=== PATIENT | male | born 1960 | race Caucasian/White ===

== ENCOUNTER 2017-02-16 19:55 | Emergency (ER) | payer OTHER ==
[~2017-02-16] VITALS: Ht 190.5 cm; Wt 93.2 kg
[2017-02-16 19:55] VITALS: BP 140/72
[2017-02-16] MEDS ORDERED: FLOM5CAP PO (20:25)
[2017-02-16] MEDS ORDERED: IBUP-1022 PO (21:15)
--- NOTE | 2017-02-17 01:24 | REP ---
Clinical: Trauma. Technique: AP, lateral, bilateral oblique views of the left hand. Comparison: 2008. Findings: No acute fracture or dislocation appreciated. 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 No subcutaneous emphysema or radiodense foreign body. Impression: No acute fracture dislocation. Moderate arthritic changes. 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 Signed by Hebert Diaz MD 02/17/2017 01:16 A
== END 2017-02-16 21:25 | disposition home or self-care (01) ==
LOC: M ED 19:55
DX: S60.222A Contusion of left hand, initial encounter (principal); W23.1XXA Caught, crushed, jammed, or pinched between stationary objects, initial encounter; Y92.89 Other specified places as the place of occurrence of the external cause; Y93.89 Activity, other specified; Y99.0 Civilian activity done for income or pay

== ENCOUNTER 2017-02-20 14:52 | Emergency (ER) | payer OTHER, SELFPAY ==
[~2017-02-20] VITALS: Ht 190.5 cm; Wt 90.9 kg
[2017-02-20 14:52] VITALS: BP 128/78
[~2017-02-20 14:52] MED LIST: FLOM5CAP PO; IBUP-1022 PO
[2017-02-20] MEDS ORDERED: AMOX500C PO (15:09)
[2017-02-20] MEDS ORDERED: ACET30TAB PO (15:09)
== END 2017-02-20 15:21 | disposition home or self-care (01) ==
LOC: M ED 14:52
DX: R22.0 Localized swelling, mass and lump, head (principal)

== ENCOUNTER 2018-02-21 17:19 | Emergency (ER) | payer OTHER, SELFPAY | END 2018-02-21 18:42 | disposition home or self-care (01) | LOC: M ED 17:19 | DX: Z48.02 Encounter for removal of sutures (principal) | CPT/HCPCS: 99282 ==

== ENCOUNTER → 2020-06-30 | Outpatient (CLI) | payer SELFPAY ==
[~2020-06-30] MED LIST changes: +ACET-716 PO; +AMOX500C PO; +FLOM0.4C39 PO; -FLOM5CAP PO
== END ==
LOC: M LABSMTC 18:21
PROVIDERS: ATTEND Pediatrics
DX: Z11.59 Encounter for screening for other viral diseases (principal)

== ENCOUNTER → 2020-11-05 | Outpatient (CLI) | payer SELFPAY | LOC: M LABSMTC 13:58 | PROVIDERS: ATTEND Family Medicine | DX: Z20.822 Contact with and (suspected) exposure to COVID-19 (principal) | CPT/HCPCS: C9803; U0003 ==

== ENCOUNTER → 2022-05-26 | Outpatient (CLI) | payer OTHER ==
[2022-05-26 20:14] LABS: ALBUMIN 3.6 GM/DL (3.2-5.2); ALT/SGPT 54 U/L (12-78); BILIRUBIN,TOTAL 0.4 MG/DL (0.2-1.0); BLOOD UREA NITROGEN 27 MG/DL (7-18); CALCIUM LEVEL 8.6 MG/DL (8.8-10.2); CARBON DIOXIDE LEVEL 24 MEQ/L (21-32); CHLORIDE LEVEL 107 MEQ/L (98-107); CHOLESTEROL LEVEL 195 MG/DL (<200); CHOLESTEROL RISK RATIO 4.756 (<5); GLOMERULAR FILTRATION RATE > 60.0 (>49); GLUCOSE, FASTING 82 MG/DL (70-100); HDL CHOLESTEROL 41 MG/DL (>40); LDL CHOLESTEROL 140 MG/DL (<100); NON-HDL-C 154 MG/DL; POTASSIUM SERUM 4.6 MEQ/L (3.5-5.1); SODIUM LEVEL 138 MEQ/L (136-145); TOTAL PROTEIN 6.9 GM/DL (6.4-8.2); TRIGLYCERIDES LEVEL 72 MG/DL (<150)
[2022-05-26 20:38] LABS: HEMOGLOBIN A1c 5.8 %
[2022-05-26 21:58] LABS: HEPATITIS C VIRUS ABY INDEX 0.1 INDEX (<0.8)
== END ==
LOC: M PLALAB 15:42
PROVIDERS: ATTEND Family Medicine
DX: Z13.6 Encounter for screening for cardiovascular disorders (principal); Z11.9 Encounter for screening for infectious and parasitic diseases, unspecified

== ENCOUNTER → 2022-07-26 | Outpatient (CLI) | payer OTHER | LOC: M SLEEP HO 13:12 | PROVIDERS: ATTEND Family Medicine | DX: Z86.69 Personal history of other diseases of the nervous system and sense organs (principal) ==

== ENCOUNTER → 2023-10-14 | Outpatient (CLI) | payer MEDICARE ==
[2023-10-14 15:43] LABS: APPEARANCE, URINE HAZY (CLEAR); BACTERIA, URINE AUTO NEGATIVE (NEGATIVE); BILIRUBIN, URINE AUTO NEGATIVE (NEGATIVE); BLOOD, URINE BLOOD NEGATIVE (NEGATIVE); COLOR, URINE YELLOW (YELLOW); GLUCOSE, URINE (UA) AUTO NEGATIVE (NEGATIVE); KETONE, URINE AUTO NEGATIVE (NEGATIVE); LEUKOCYTE ESTERASE, URINE AUTO NEGATIVE (NEGATIVE); MUCUS, URINE SMALL (NEGATIVE); NITRITE, URINE AUTO NEGATIVE (NEGATIVE); PROTEIN, URINE AUTO NEGATIVE (NEGATIVE); RBC, URINE AUTO 0 /HPF (0-3); SQUAMOUS EPITHELIAL CELL UR AU 0 /HPF (0-6); UROBILINOGEN, URINE AUTO 0.2 mg/dL (0.0-2.0); WBC, URINE AUTO 1 /HPF (0-3)
[2023-10-14 19:22] LABS: BASO % 0.3 % (0.0-1.0); EOS # 0.1 10^3/uL (0.0-0.5); EOS % 1.7 % (0.0-3.0); HEMATOCRIT 46.2 % (42.0-52.0); HEMOGLOBIN 15.9 g/dl (13.5-17.5); LYMPH # 2.1 10^3/uL (1.5-5.0); LYMPH % 33.3 % (24.0-44.0); MEAN CORPUSCULAR HEMOGLOBIN 31.5 pg (27.0-33.0); MEAN CORPUSCULAR HGB CONC 34.4 g/dl (32.0-36.5); MEAN CORPUSCULAR VOLUME 91.7 fl (80.0-96.0); MONO # 0.5 10^3/uL (0.0-0.8); MONO % 8.2 % (2.0-8.0); NEUTROPHILS # 3.6 10^3/uL (1.5-8.5); NEUTROPHILS % 56.3 % (36.0-66.0); PLATELET COUNT, AUTOMATED 269 10^3/uL (150-450); RED BLOOD COUNT 5.04 10^6/uL (4.30-6.10); WHITE BLOOD COUNT 6.4 10^3/uL (4.0-10.0)
[2023-10-14 19:36] LABS: C REACTIVE PROTEIN QUANTITATIV < 0.40 MG/DL (<1.0); LIPASE 30 U/L (12-53)
[2023-10-14 19:38] LABS: ALBUMIN 3.9 G/DL (3.2-5.2); ALKALINE PHOSPHATASE 91 U/L (46-116); ALT/SGPT 34 U/L (7.0-40); AST/SGOT 26 U/L (<34); BILIRUBIN,TOTAL 0.7 MG/DL (0.3-1.2); BLOOD UREA NITROGEN 19 MG/DL (9-23); CALCIUM LEVEL 8.5 MG/DL (8.3-10.6); CARBON DIOXIDE LEVEL 24 MMOL/L (20-31); CHLORIDE LEVEL 110 MMOL/L (98-107); CREATININE FOR GFR 0.88 MG/DL (0.70-1.30); GLOMERULAR FILTRATION RATE > 60.0 (>49); GLUCOSE, FASTING 86 MG/DL (74-106); POTASSIUM SERUM 4.3 MMOL/L (3.5-5.1); SODIUM LEVEL 139 MMOL/L (136-145); TOTAL PROTEIN 7.1 G/DL (5.7-8.2)
[2023-10-17 23:08] LABS: PSA TOTAL 0.5 ng/mL (0.0-4.0)
== END ==
LOC: M PLALAB 14:40
PROVIDERS: ATTEND Nurse Practitioner Family
DX: N40.0 Benign prostatic hyperplasia without lower urinary tract symptoms (principal); R10.84 Generalized abdominal pain

== ENCOUNTER → 2023-11-04 | Outpatient (CLI) | payer MEDICARE ==
[2023-11-04 16:10] LABS: CHOLESTEROL RISK RATIO 4.4 (<5); HDL CHOLESTEROL 37.2 MG/DL (>40); NON-HDL-C 126.8 MG/DL
[2023-11-04 16:18] LABS: HEMOGLOBIN A1c 5.6 % (4.0-6.0)
== END ==
LOC: M PLALAB 14:31
PROVIDERS: ATTEND Family Medicine
DX: E78.00 Pure hypercholesterolemia, unspecified (principal); R73.03 Prediabetes

== ENCOUNTER → 2023-12-29 | Outpatient (REF) | payer MEDICARE ==
[2024-01-09 11:08] LABS: CALPROTECTIN STOOL 64 mcg/g (<50); PANCREATIC ELASTASE STOOL > 500 mcg/g (>200)
== END ==
LOC: M LAB REF 13:17
PROVIDERS: ATTEND Nurse Practitioner Family
DX: R19.7 Diarrhea, unspecified (principal); R14.0 Abdominal distension (gaseous)

== ENCOUNTER → 2023-12-29 | Outpatient (CLI) | payer MEDICARE | LOC: M LAB 17:03 | PROVIDERS: ATTEND Nurse Practitioner Family | DX: R19.7 Diarrhea, unspecified (principal) ==

== ENCOUNTER 2024-04-04 06:21 | Emergency (ER) | payer MEDICARE ==
[~2024-04-04] VITALS: Ht 193 cm; Wt 98.0 kg
[2024-04-04 07:06] LABS: BASO % 0.4 % (0.0-1.0); EOS # 0.1 10^3/uL (0.0-0.5); EOS % 1.7 % (0.0-3.0); HEMATOCRIT 41.9 % (42.0-52.0); HEMOGLOBIN 14.3 g/dl (13.5-17.5); LYMPH # 1.8 10^3/uL (1.5-5.0); LYMPH % 24.1 % (24.0-44.0); MEAN CORPUSCULAR HEMOGLOBIN 31.6 pg (27.0-33.0); MEAN CORPUSCULAR HGB CONC 34.1 g/dl (32.0-36.5); MEAN CORPUSCULAR VOLUME 92.5 fl (80.0-96.0); MONO # 0.7 10^3/uL (0.0-0.8); MONO % 9.4 % (2.0-8.0); NEUTROPHILS # 4.7 10^3/uL (1.5-8.5); NEUTROPHILS % 64.1 % (36.0-66.0); PLATELET COUNT, AUTOMATED 234 10^3/uL (150-450); RED BLOOD COUNT 4.53 10^6/uL (4.30-6.10); WHITE BLOOD COUNT 7.3 10^3/uL (4.0-10.0)
[2024-04-04 07:32] LABS: BLOOD UREA NITROGEN 20 MG/DL (9-23); CARBON DIOXIDE LEVEL 25 MMOL/L (20-31); CHLORIDE LEVEL 111 MMOL/L (98-107); CREATININE FOR GFR 0.83 MG/DL (0.70-1.30); GLOMERULAR FILTRATION RATE > 60.0 (>49); GLUCOSE, FASTING 110 MG/DL (74-106); POTASSIUM SERUM 4.3 MMOL/L (3.5-5.1); SODIUM LEVEL 139 MMOL/L (136-145)
[2024-04-04 07:42] LABS: CPK CREATINE PHOSPHOKINASE 302 U/L (46-171); MB/CK RELATIVE INDEX 2.31 (< OR =4)
[2024-04-04 08:33] LABS: MB/CK RELATIVE INDEX 2.45 (< OR =4)
[2024-04-04] MEDS ORDERED: ISOVUE-370 76% 100ML VIAL As Ordered ONE (09:27)
[2024-04-04 10:30] VITALS: BP 109/73; TEMP 98.5; O2SAT 98
== END 2024-04-04 10:49 | disposition home or self-care (01) ==
LOC: M ED 06:21
DX: M94.0 Chondrocostal junction syndrome [Tietze] (principal); R91.1 Solitary pulmonary nodule; R00.1 Bradycardia, unspecified
CPT/HCPCS: 36415; 71046; 71275; 80048; 82550; 82553; 84484; 85025; 93005; 93041; 94760; 99285; Q9967

== ENCOUNTER 2024-04-30 12:18 | Day surgery (SDC) | payer MEDICARE ==
[~2024-04-30] VITALS: Ht 193 cm; Wt 91.5 kg
[2024-04-30] MEDS: NS 1,000 ML IV ONE (12:25)
[2024-04-30] MEDS ORDERED: propofoL 200 MG/20 ML VIAL As Ordered ONE (12:28)
[2024-04-30 13:24] VITALS: TEMP 98.1
[2024-04-30 13:45] VITALS: BP 121/70; O2SAT 98
== END 2024-04-30 13:45 | disposition home or self-care (01) ==
LOC: M OPP 12:18
PROVIDERS: ATTEND Internal Medicine Gastroenterology
DX: D12.4 Benign neoplasm of descending colon (principal); Z80.0 Family history of malignant neoplasm of digestive organs; K57.30 Diverticulosis of large intestine without perforation or abscess without bleeding; K64.8 Other hemorrhoids; K29.50 Unspecified chronic gastritis without bleeding; K44.9 Diaphragmatic hernia without obstruction or gangrene; G47.30 Sleep apnea, unspecified; R73.03 Prediabetes; E78.00 Pure hypercholesterolemia, unspecified; Z80.42 Family history of malignant neoplasm of prostate

== ENCOUNTER → 2024-05-11 | Outpatient (CLI) | payer MEDICARE ==
[~2024-05-11] MED LIST changes: +LIDOCAINE 1% MDV 20ML VIAL As Ordered ONE; +MIDAZOLAM INJ 2MG/2ML VIAL As Ordered ONE; +fentaNYL 100 MCG/2 ML INJECTION As Ordered ONE
[2024-05-11 07:50] VITALS: TEMP 97.3
[2024-05-11 08:48] VITALS: BP 119/74; O2SAT 95
== END ==
LOC: M IRPRO 07:33
PROVIDERS: ATTEND Family Medicine
DX: R91.8 Other nonspecific abnormal finding of lung field (principal)
CPT/HCPCS: 32408; J2250; J3010

== ENCOUNTER 2024-08-19 20:09 | Emergency (ER) | payer MEDICARE ==
[~2024-08-19] VITALS: Ht 193 cm; Wt 95.0 kg
[~2024-08-19 20:09] MED LIST changes: -LIDOCAINE 1% MDV 20ML VIAL As Ordered ONE; -MIDAZOLAM INJ 2MG/2ML VIAL As Ordered ONE; -fentaNYL 100 MCG/2 ML INJECTION As Ordered ONE
[2024-08-19] MEDS: ACETAMINOPHEN 325 MG TAB PO ONE (21:55)
[2024-08-19 22:15] VITALS: BP 113/67; TEMP 98.7; O2SAT 95
[2024-08-20] MEDS ORDERED: CEFU50TA PO (03:17)
== END 2024-08-19 23:00 | disposition home or self-care (01) ==
LOC: M ED 20:09
DX: J06.9 Acute upper respiratory infection, unspecified (principal); Z79.2 Long term (current) use of antibiotics

== ENCOUNTER 2024-08-19 22:54 | Emergency (ER) | payer MEDICARE ==
[2024-08-19 23:01] VITALS: TEMP 98.7
[2024-08-19] MEDS: NS (Normal Saline) 0.9% 1,000 ML IV ONE (23:50)
[2024-08-19 23:57] LABS: BASO % 0.1 % (0.0-1.0); EOS % 0.1 % (0.0-3.0); HEMATOCRIT 40.6 % (42.0-52.0); HEMOGLOBIN 14.1 g/dl (13.5-17.5); LYMPH # 3.2 10^3/uL (1.5-5.0); MEAN CORPUSCULAR HEMOGLOBIN 31.6 pg (27.0-33.0); MEAN CORPUSCULAR HGB CONC 34.7 g/dl (32.0-36.5); MONO # 2.1 10^3/uL (0.0-0.8); MONO % 7.8 % (2.0-8.0); NEUTROPHILS # 21.3 10^3/uL (1.5-8.5); NEUTROPHILS % 79.4 % (36.0-66.0); PLATELET COUNT, AUTOMATED 278 10^3/uL (150-450); RED BLOOD COUNT 4.46 10^6/uL (4.30-6.10); WHITE BLOOD COUNT 26.8 10^3/uL (4.0-10.0)
[2024-08-20 00:18] LABS: CK-MB VALUE MASS 4.3 NG/ML (<3.6)
[2024-08-20 00:19] LABS: BLOOD UREA NITROGEN 21 MG/DL (9-23); CALCIUM LEVEL 8.7 MG/DL (8.3-10.6); CARBON DIOXIDE LEVEL 22 MMOL/L (20-31); CHLORIDE LEVEL 107 MMOL/L (98-107); CPK CREATINE PHOSPHOKINASE 255 U/L (46-171); GLOMERULAR FILTRATION RATE > 60.0 (>49); GLUCOSE, FASTING 132 MG/DL (74-106); MAGNESIUM LEVEL 1.6 MG/DL (1.8-2.4); MB/CK RELATIVE INDEX 1.68 (< OR =4); POTASSIUM SERUM 4.3 MMOL/L (3.5-5.1); SODIUM LEVEL 137 MMOL/L (136-145)
[2024-08-20 00:21] LABS: THYROID STIMULATING HORMONE 0.644 uIU/ML (0.55-4.78)
[2024-08-20] MEDS ORDERED: ISOVUE-370 76% 100ML VIAL As Ordered ONE (00:32)
[2024-08-20] MEDS: NS (Normal Saline) 0.9% 1,000 ML IV ONE (01:46)
[2024-08-20] MEDS: MAG SULF 1GM/100ML (MAG RUN) 1 GM in IV 1 EA IV ONE (01:47)
[2024-08-20 02:14] LABS: APPEARANCE, URINE HAZY (CLEAR); BACTERIA, URINE AUTO 1+ (NEGATIVE); BILIRUBIN, URINE AUTO NEGATIVE (NEGATIVE); BLOOD, URINE BLOOD 1+ (NEGATIVE); COLOR, URINE YELLOW (YELLOW); GLUCOSE, URINE (UA) AUTO NEGATIVE (NEGATIVE); KETONE, URINE AUTO NEGATIVE (NEGATIVE); LEUKOCYTE ESTERASE, URINE AUTO 3+ (NEGATIVE); MUCUS, URINE SMALL (NEGATIVE); NITRITE, URINE AUTO POSITIVE (NEGATIVE); PROTEIN, URINE AUTO NEGATIVE (NEGATIVE); RBC, URINE AUTO 0 /HPF (0-3); SPECIFIC GRAVITY URINE AUTO 1.025 (1.002-1.035); SQUAMOUS EPITHELIAL CELL UR AU 0 /HPF (0-6); UROBILINOGEN, URINE AUTO 0.2 mg/dL (0.0-2.0); WBC, URINE AUTO 77 /HPF (0-3)
[2024-08-20 03:00] VITALS: BP 101/61; O2SAT 95
[2024-08-20] MEDS ORDERED: CEFU50TA PO (03:17)
[2024-08-20] MEDS: CEFUROXIME 500 MG TAB PO STA (03:36)
== END 2024-08-20 03:54 | disposition home or self-care (01) ==
LOC: M ED 22:54
DX: R55 Syncope and collapse (principal); N39.0 Urinary tract infection, site not specified; E86.0 Dehydration; R91.1 Solitary pulmonary nodule; I25.2 Old myocardial infarction; Z79.2 Long term (current) use of antibiotics
CPT/HCPCS: 71275; 74177; 80048; 81001; 82550; 82553; 83605; 83735; 83880; 84443; 84484; 85025; 93005; 93041; 94760; 96361; 96365; 96366; 99285; J3475; Q9967